=== PATIENT | male | born 1930 | race African-American/Black ===

== ENCOUNTER 2021-05-24 05:15 | Emergency (ER) | payer BC ==
[~2021-05-24] VITALS: Ht 182.9 cm; Wt 85.3 kg
--- NOTE | 2021-05-24 05:30 | NUR ---
BIBRA C/O GLF, RIGHT LEG PAIN +SHORTENING OF RIGHT LEG -HT -KO 100MG FENTANYL GIVEN IS CONSULTANT 5/10 PAIN. PATIENT ALERT AND OREINTED X3. NORMALLY PATIENT IS AMBULATORY BUT ROSEMARY IN BY STRETCHER.
--- NOTE | 2021-05-24 05:31 | NUR ---
FITTINGS TIGHTENER LAC #20G S/L; PATENT AND INTACT
--- NOTE | 2021-05-24 05:31 | NUR ---
R LEG NOTED WITH SHORTENING AND EXTERNAL ROTATION. NO DISCOLORATION NOTED AT THIS TIME. NEUROCHECK DONE. LOC WNL. PT AWAKE & TOLERATING R/A WELL WITH NO SOB. CONNECTED PT TO POX AND MONITOR.
--- NOTE | 2021-05-24 05:46 | NUR ---
FACE WORKER AT PT'S BEDSIDE
--- NOTE | 2021-05-24 06:15 | NUR ---
SOFT CERVICAL COLLAR APPLIED PER DR. SUERO ORDERS.
--- NOTE | 2021-05-24 06:16 | NUR ---
COVID ANTIGEN AND MRSA SWAB COLLECTED VIA [facility]ARES AND SENT TO LAB
--- NOTE | 2021-05-24 06:28 | NUR ---
UPDATED BOLA [phone] PT COMING FROM HOME; LIVES IN [facility]
[2021-05-24] MEDS ORDERED: TOLT4CAP14 PO (06:48)
[2021-05-24] MEDS ORDERED: SIMV-46 PO (06:48)
[2021-05-24] MEDS ORDERED: SITA100T PO (06:48)
--- NOTE | 2021-05-24 06:56 | NUR ---
PT TAKEN TO CT VIA KATI
--- NOTE | 2021-05-24 07:34 | NUR ---
PATIENT CAME BACK TO ER [address]
[2021-05-24 07:47] LABS: BASOPHILS # (AUTO) 0.1 K/uL (0.0-0.2); BASOPHILS % (AUTO) 0.6 % (0.0-2.0); EOSINOPHILS % (AUTO) 0.5 % (0.0-6.0); HEMATOCRIT 35 % (39-51); HEMOGLOBIN 10.8 g/dL (13.5-17.5); LYMPHOCYTES # (AUTO) 1.5 K/uL (0.8-4.8); LYMPHOCYTES % (AUTO) 13.4 % (20.0-44.0); MEAN CORPUSCULAR HGB CONC 31 g/dl (31.0-36.0); MEAN CORPUSCULAR VOLUME 78 fL (80-96); MONOCYTES # (AUTO) 1.3 K/uL (0.1-1.30); MONOCYTES % (AUTO) 11.5 % (2.0-12.0); NEUTROPHILS # (AUTO) 8.3 K/uL (1.8-8.9); PLATELET COUNT (AUTO) 250 K/uL (150-450); RED BLOOD CELL COUNT(AUTO) 4.45 MIL/uL (4.5-6.0); WHITE BLOOD COUNT (AUTO) 11.2 K/uL (4.3-11.0)
[2021-05-24 08:02] LABS: ALBUMIN 3.5 g/dL (3.4-5.0); BILIRUBIN,DIRECT 0.2 mg/dL (0.0-0.2); BILIRUBIN,TOTAL 0.4 mg/dL (0.2-1.0); CALCIUM, SERUM 8.5 mg/dL (8.5-10.1); CREATININE 1.1 mg/dL (0.6-1.3); TOTAL PROTEIN, SERUM 6.8 g/dL (6.4-8.2)
[2021-05-24] MEDS ORDERED: KETOROLAC TROMETHAMINE 15 MG/ML VIAL ONE (08:54)
[2021-05-24] MEDS ORDERED: KETOROLAC TROMETHAMINE INJ 30 MG/ML VIAL IV ONE (09:00)
--- NOTE | 2021-05-24 09:14 | NUR ---
[facility] CALLED CONTROL VALVE MECHANIC PAGED.
--- NOTE | 2021-05-24 09:16 | NUR ---
ANAIS CALLED AND INFORMED OF PATIENT STATUS
--- NOTE | 2021-05-24 10:31 | NUR ---
GOT BED 327-1
--- NOTE | 2021-05-24 10:55 | NUR ---
REPORT GIVEN TO EULALIO MAYER OF [facility]
[2021-05-24] MEDS ORDERED: CHOL200013 PO (10:59)
[2021-05-24] MEDS ORDERED: CANA300T PO (10:59)
[2021-05-24] MEDS ORDERED: METF-442 PO (10:59)
[2021-05-24] MEDS ORDERED: FERR325T23 PO (10:59)
--- NOTE | 2021-05-24 11:49 | NUR ---
CALLED [facility] [phone] INFORMED BEING DECLINED DUE TO NO BED CAPACITY. ACCEPTING JESS CHAPMAN.
--- NOTE | 2021-05-24 11:50 | NUR ---
PATIENT REFUSED VARELA CATHETER INSERTION
--- NOTE | 2021-05-24 12:30 | NUR ---
CALLED [facility] FAXING CLINICALS TO THEM
--- NOTE | 2021-05-24 16:15 | NUR ---
CHRISTINE CHAVEZ SON [phone]
--- NOTE | 2021-05-24 16:43 | NUR ---
PT ACCETED TO [facility] UNDER DR[facility] JOHNSON ROOM #[id number] CALL [phone] PER CYNDIE.
--- NOTE | 2021-05-24 17:02 | NUR ---
[facility]UCENA DONALD FOR TRANSPORT CURRENT ETA IS 2200 PER MURALI.
[2021-05-24 17:08] VITALS: BP 147/66
--- NOTE | 2021-05-24 17:16 | NUR ---
REPORT GIVEN TO GUIDO MAYER [address] [facility]
--- NOTE | 2021-05-24 18:59 | NUR ---
BS 106MG/DL
--- NOTE | 2021-05-24 19:19 | NUR ---
REPORT GIVEN TO EMMA MAYER FOR DEEP
--- NOTE | 2021-05-24 19:43 | NUR ---
new galdino 08:30pm
--- NOTE | 2021-05-24 20:37 | NUR ---
REPORT GIVEN TO AMSHABANA FOR DEEP. PT TRANSFERING TO [facility]
== END 2021-05-24 20:53 | disposition short-term general hospital (02) ==
LOC: ER 05:19 → UNDOADMIN 10:55 → MED 10:55 → ER 20:53
DX: S72.001A Fracture of unspecified part of neck of right femur, initial encounter for closed fracture (principal); W06.XXXA Fall from bed, initial encounter; Y93.89 Activity, other specified; Y92.032 Bedroom in apartment as the place of occurrence of the external cause; I10 Essential (primary) hypertension; Z79.84 Long term (current) use of oral hypoglycemic drugs; Z79.899 Other long term (current) drug therapy; D64.9 Anemia, unspecified; D72.829 Elevated white blood cell count, unspecified; M50.31 Other cervical disc degeneration, high cervical region; M48.02 Spinal stenosis, cervical region; E11.51 Type 2 diabetes mellitus with diabetic peripheral angiopathy without gangrene; Z20.822 Contact with and (suspected) exposure to COVID-19
CPT/HCPCS: 36415; 70450; 72125; 73502; 73590; 80048; 80076; 85025; 87081; 87426; 96374; 99285; C9803; J1885; L0172